=== PATIENT | female | born 1950 | race Caucasian/White ===

== ENCOUNTER 2018-11-04 13:35 | Inpatient (IN) | payer OTHER ==
[~2018-11-04] VITALS: Ht 152.4 cm; Wt 70.5 kg
[~2018-11-04 13:35] MED LIST: ECOTRIN81 MG PO; LEVAQUIN750 MG PO; METFORMIN ER500 M1 PO; PRI20 PO; PYRIDIUM200 MG PO; ZES10 PO; ZOC20 PO
[2018-11-04 14:29] LABS: BASOPHIL % 0.5 % (0-2); PLATELET COUNT 311 x10^3mcL (130-400); RED CELL DISTRIBUTION WIDTH 13.2 % (11.5-14.5)
[2018-11-04 14:54] LABS: ALBUMIN 3.4 g/dL (3.4-5.0); BILIRUBIN TOTAL 0.2 mg/dL (0.20-1.00); CALCIUM 8.5 mg/dL (8.5-10.1); CARBON DIOXIDE 25.3 mmol/L (21-32); CREATININE SERUM 1.1 mg/dL (0.6-1.0); POTASSIUM SERUM 4.4 mmol/L (3.5-5.1); TOTAL PROTEIN, SERUM 6.7 g/dL (6.4-8.2)
[2018-11-04] MEDS ORDERED: LANTUS SOLOS100 U/M1 (15:20)
[2018-11-04] MEDS ORDERED: HUMALOG100 U/ML (15:20)
[2018-11-04] MEDS ORDERED: NORCO1 TA2 PO (15:21)
[2018-11-04] MEDS ORDERED: CLOPIDOGREL75 M1 PO (15:21)
[2018-11-04] MEDS ORDERED: TENORMIN25 MG (15:21)
[2018-11-04] MEDS ORDERED: FLUOXETINE40 MG PO (15:21)
[2018-11-04] MEDS ORDERED: LISINOPRIL40 MG PO (15:47)
[2018-11-04] MEDS ORDERED: NOR10T PO (15:49)
[2018-11-04] MEDS ORDERED: ATENOLOL/CHLORT1 TA1 PO (15:49)
[2018-11-04 17:16] VITALS: BP 185/59
[2018-11-04 18:16] VITALS: BP 135/45
[2018-11-04 19:17] LABS: microscopic required? YES; urine erythrocyte NEGATIVE (NEGATIVE)
[2018-11-04 20:55] VITALS: BP 137/39
[2018-11-04 22:05] LABS: CALCIUM 7.7 mg/dL (8.5-10.1); CARBON DIOXIDE 26.2 mmol/L (21-32); CREATININE SERUM 1.2 mg/dL (0.6-1.0); POTASSIUM SERUM 4.7 mmol/L (3.5-5.1)
[2018-11-05 02:56] LABS: CREATININE SERUM 1.4 mg/dL (0.6-1.0); POTASSIUM SERUM 3.9 mmol/L (3.5-5.1)
[2018-11-05 05:53] VITALS: BP 156/58
[2018-11-05 06:26] LABS: CALCIUM 8.5 mg/dL (8.5-10.1); CARBON DIOXIDE 24.8 mmol/L (21-32); CREATININE SERUM 1.2 mg/dL (0.6-1.0); POTASSIUM SERUM 4.1 mmol/L (3.5-5.1)
[2018-11-05 09:31] VITALS: BP 208/67
[2018-11-05 10:21] LABS: CALCIUM 8.8 mg/dL (8.5-10.1); CARBON DIOXIDE 23.2 mmol/L (21-32); CREATININE SERUM 1.3 mg/dL (0.6-1.0); POTASSIUM SERUM 4.6 mmol/L (3.5-5.1)
[2018-11-05 14:31] LABS: CALCIUM 8.3 mg/dL (8.5-10.1); CARBON DIOXIDE 23.5 mmol/L (21-32); CREATININE SERUM 1.3 mg/dL (0.6-1.0); POTASSIUM SERUM 4.6 mmol/L (3.5-5.1)
[2018-11-05 14:46] LABS: URIC ACID 5.7 mg/dL (2.6-6.0)
[2018-11-05 15:00] VITALS: BP 178/55
[2018-11-05 17:08] VITALS: BP 168/49
[2018-11-05 18:33] VITALS: BP 157/40
[2018-11-05 19:24] LABS: CALCIUM 7.9 mg/dL (8.5-10.1); CARBON DIOXIDE 25.2 mmol/L (21-32); CREATININE SERUM 1.3 mg/dL (0.6-1.0); POTASSIUM SERUM 4.3 mmol/L (3.5-5.1)
[2018-11-05 22:43] VITALS: BP 147/41
[2018-11-06] VITALS (7 sets, daily range): BP systolic 131–190; BP diastolic 45–72
[2018-11-06 07:44] LABS: CALCIUM 8.6 mg/dL (8.5-10.1); CREATININE SERUM 1.1 mg/dL (0.6-1.0); POTASSIUM SERUM 3.8 mmol/L (3.5-5.1)
[2018-11-06 07:53] LABS: BASOPHIL % 0.4 % (0-2); PLATELET COUNT 266 x10^3mcL (130-400); RED CELL DISTRIBUTION WIDTH 12.3 % (11.5-14.5)
[2018-11-07 05:45] VITALS: BP 164/53
[2018-11-07 06:32] LABS: CALCIUM 8.9 mg/dL (8.5-10.1); CARBON DIOXIDE 22.6 mmol/L (21-32); CREATININE SERUM 1.1 mg/dL (0.6-1.0); POTASSIUM SERUM 3.8 mmol/L (3.5-5.1)
[2018-11-07 08:59] VITALS: BP 176/63
[2018-11-07] MEDS ORDERED: CATAPRES0.1 MG PO (09:21)
[2018-11-07 11:38] VITALS: BP 169/57
[2018-11-07 13:42] VITALS: BP 132/32
[2018-11-07 13:57] VITALS: BP 132/32
== END 2018-11-07 14:53 | disposition home or self-care (01) | DRG 683 ==
LOC: ED 13:35 → MU 16:23 → ED 16:51 → MU 16:51
PROVIDERS: Emergency Medicine; Internal Medicine; Internal Medicine Nephrology
DX: N17.9 Acute kidney failure, unspecified (principal); E87.1 Hypo-osmolality and hyponatremia; I13.0 Hypertensive heart and chronic kidney disease with heart failure and stage 1 through stage 4 chronic kidney disease, or unspecified chronic kidney disease; I50.9 Heart failure, unspecified; E86.0 Dehydration; I16.0 Hypertensive urgency; E11.22 Type 2 diabetes mellitus with diabetic chronic kidney disease; N18.9 Chronic kidney disease, unspecified; E11.65 Type 2 diabetes mellitus with hyperglycemia; K74.60 Unspecified cirrhosis of liver; K76.0 Fatty (change of) liver, not elsewhere classified; I25.10 Atherosclerotic heart disease of native coronary artery without angina pectoris; E78.5 Hyperlipidemia, unspecified; E66.9 Obesity, unspecified; Z79.4 Long term (current) use of insulin; Z79.891 Long term (current) use of opiate analgesic; Z79.1 Long term (current) use of non-steroidal anti-inflammatories (NSAID)
CPT/HCPCS: 82962; 87804; 90658; C9113; J0360; J1650; J1885; J2270; J2405; J2765; J3490; J7030; Q0092

== ENCOUNTER 2019-04-04 06:49 | Emergency (ER) | payer OTHER ==
[~2019-04-04] VITALS: Ht 152.4 cm; Wt 72.6 kg
[~2019-04-04 06:49] MED LIST changes: +ATENOLOL/CHLORT1 TA1 PO; +CATAPRES0.1 MG PO; +CLOPIDOGREL75 M1 PO; +FLUOXETINE40 MG PO; +HUMALOG100 U/ML; +LANTUS SOLOS100 U/M1; +LISINOPRIL40 MG PO; +NOR10T PO; +NORCO1 TA2 PO; +TENORMIN25 MG
[2019-04-04 06:51] VITALS: Ht 152.4 cm; Wt 72.6 kg
[2019-04-04] MEDS ORDERED: BENAZEPRIL HCL-1 TA1 PO (07:20)
[2019-04-04] MEDS ORDERED: [UNRECOGNIZED DRUG - REMARK] PO (07:21)
[2019-04-04 07:55] LABS: CARBON DIOXIDE 27.5 mmol/L (21-32); CHLORIDE SERUM 95 mmol/L (98-107); CREATININE SERUM 1.2 mg/dL (0.6-1.0); GLUCOSE SERUM 94 mg/dL (74-106); POTASSIUM SERUM 4.4 mmol/L (3.5-5.1); SODIUM SERUM 133 mmol/L (136-145)
[2019-04-04 08:00] LABS: ALBUMIN 3.7 g/dL (3.4-5.0); ALKALINE PHOSPHATASE 103 U/L (46-116); ALT/SGPT 25 U/L (14-59); AST/SGOT 12 U/L (15-37); BILIRUBIN TOTAL 0.24 mg/dL (0.20-1.00); TOTAL PROTEIN, SERUM 7.6 g/dL (6.4-8.2)
[2019-04-04 08:25] LABS: BASOPHIL % 0.5 % (0-2); PLATELET COUNT 322 x10^3mcL (130-400); RED CELL DISTRIBUTION WIDTH 13.4 % (11.5-14.5)
[2019-04-04 11:31] VITALS: BP 190/52
== END 2019-04-04 11:31 | disposition home or self-care (01) ==
LOC: ED 06:49
PROVIDERS: Emergency Medicine
DX: R41.82 Altered mental status, unspecified (principal); E11.649 Type 2 diabetes mellitus with hypoglycemia without coma; I11.0 Hypertensive heart disease with heart failure; I50.9 Heart failure, unspecified; E78.00 Pure hypercholesterolemia, unspecified
CPT/HCPCS: 36415; 82962; Q0092

== ENCOUNTER 2019-05-12 02:25 | Emergency (ER) | payer OTHER ==
[~2019-05-12] VITALS: Ht 154.9 cm; Wt 72.6 kg
[~2019-05-12 02:25] MED LIST changes: +BENAZEPRIL HCL-1 TA1 PO; +[UNRECOGNIZED DRUG - REMARK] PO
[2019-05-12 02:40] VITALS: Ht 154.9 cm; Wt 72.6 kg
[2019-05-12 03:05] LABS: BASOPHIL % 0.8 % (0-2); PLATELET COUNT 239 x10^3mcL (130-400); RED CELL DISTRIBUTION WIDTH 12.6 % (11.5-14.5)
[2019-05-12 03:12] LABS: CALCIUM 9.2 mg/dL (8.5-10.1); CARBON DIOXIDE 25.4 mmol/L (21-32); CHLORIDE SERUM 100 mmol/L (98-107); CREATININE SERUM 1.7 mg/dL (0.6-1.0); GLUCOSE SERUM 135 mg/dL (74-106); POTASSIUM SERUM 3.5 mmol/L (3.5-5.1); SODIUM SERUM 136 mmol/L (136-145)
[2019-05-12 03:17] LABS: ALBUMIN 3.5 g/dL (3.4-5.0); ALKALINE PHOSPHATASE 110 U/L (46-116); ALT/SGPT 19 U/L (14-59); AST/SGOT 9 U/L (15-37); BILIRUBIN TOTAL 0.26 mg/dL (0.20-1.00); TOTAL PROTEIN, SERUM 7.1 g/dL (6.4-8.2)
[2019-05-12 04:54] VITALS: BP 199/74
== END 2019-05-12 05:19 | disposition home or self-care (01) ==
LOC: ED 02:25
PROVIDERS: Emergency Medicine
DX: E11.649 Type 2 diabetes mellitus with hypoglycemia without coma (principal); I10 Essential (primary) hypertension
CPT/HCPCS: 82962; J1885; J7042